=== PATIENT | female | born 1945 | race Caucasian/White ===

== ENCOUNTER 2023-09-19 07:30 | Outpatient (RCR) | payer MEDICARE, BC, SELFPAY ==
--- NOTE | 2023-08-12 13:14 | OTOPEVAL1 ---
Assessment and note entered by JESSY Reed/Beatrice, CHT Evaluation Information Assessment Status Evaluation Diagnosis Rheumatoid Arthritis Subjective Information Patient diagnosed with RA years ago. She receives infusion treatments every 6 weeks. She is left handed. She reports pain in the left wrist all the time. Finger joints are stiff and sore. Bilateral hands have ulnar drift at the MCP joints. Reports difficulties with opening a jar, donning a bra, gripping, and writing. Reported Pain Level Pain Score Moderate Pain Additional Pain Score Comments Pt grasping left wrist, reports this is where most of her pain is located. Reports some discomfort and stiffness in the fingers. Assessment OT Clinical Summary Patient referred to OT with dx of RA, which is affecting her hands and wrists. She presents with a decline in functional use of bilateral hands due to pain, ROM deformities, and weakness. Skilled OT indicated for splinting, adaptive technique education, modalities, HEP instruction, and functional therapeutic exercise to facilitate optimal functional use of bilateral hands. Plan of Care Interventions Therapeutic Exercise,Therapeutic Activities,Hot Pack/Cold Pack,Check Out for Orthotic/Pr, Ultrasound,Paraffin OT Services Indicated Yes Treatment Frequency and 1x/week for 4 weeks Duration These treatments will address the objective and functional deficits as defined above. The patient will be advanced safely and appropriately in order for the patient to progress towards his/her prior level of function. Additional exercises will be introduced and as well as a comprehensive home exercise program upon discharge, if needed, ?to ensure carryover of functional gains achieved in the clinic. This treatment plan has been reviewed and agreement upon by the patient.
--- NOTE | 2023-08-12 13:15 | OPREHPOC ---
Outpatient Therapy Plan of Care This is a Multidisciplinary Plan of Care that may contain components documented by all disciplines (PT, OT, and ST.) OT Problem 1 OT Problem #1 Knowledge Deficit OT Goal 1 Goal 1. Patient to be independent with instructed materials. 2. Patient to adhere to splint wearing schedule. Target Visit 5 OT Problem 2 OT Problem #2 Impaired Strength OT Goal 1 Goal 1. 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 2. Increase (L) ballet dancer strength to 16 lbs. OT Problem 3 OT Problem #3 Pain OT Goal 1 Goal 1. Patient to report reduced wrist and finger pain , reporting times of 0/10 pain during ADLs. Target Visit 5
--- NOTE | 2023-09-03 10:37 | PCOTNOTE ---
Patient called & cancelled scheduled appointment this date due to being sick.
--- NOTE | 2023-09-19 08:48 | OTOPDC ---
Assessment and note entered by JESSY Reed/Beatrice, CHT Discharge Notification 09/19/23 Diagnosis Rheumatoid Arthritis Subjective Information Patient has been wearing a resting hand splint on the left hand/wrist ~4 weeks now. She states she is able to wear it during the day for an hour at a time, but the wrist starts to ache, so she is unable to go longer. The goal is for patient to work up her wear time to be able to wear at night. She reports she likes some of the adaptive equipment shown to her to reduce joint strain during ADLs. She received her RA infusion treatment last week and is feeling better. Assessment OT Clinical Summary Patient referred to OT with dx of RA with pain and joint deformities that restrict hand use during ADLs. Adaptive equipment and joint protection techniques have been reviewed. A resting hand splint was fabricated for the left hand/wrist to provide some joint relief at the wrist and MCP joints. She reports she does not like to leave the house in the winter months due to the cold affecting her joints, so therapy will discharge today with the plan of patient continuing to wear the brace and work on her ROM HEP. Therapy will be happy to flower buncher or picker where we left off in the warmer months as needed. She verbalizes good understanding and is in agreement with this plan. Plan of Care OT Services Indicated No; D/C with HEP
== END 2023-09-19 11:06 | disposition home or self-care (01) ==
LOC: ANHOT 07:30
PROVIDERS: PCP Internal Medicine
DX: M05.79 Rheumatoid arthritis with rheumatoid factor of multiple sites without organ or systems involvement (principal)
CPT/HCPCS: 97110; 97165; 97535; 97763; L3806